=== PATIENT | male | born 1960 | race Caucasian/White ===

== ENCOUNTER 2019-10-14 14:01 | Inpatient (IN) | payer OTHER ==
[2019-10-14 17:04] VITALS: BMI 33.3
--- NOTE | 2019-10-14 17:48 | HP ---
CIWA Score Nausea/Vomitin Muscle Tremors: 2 Anxiety: 3 Agitation: 2 Paroxysmal Sweats: 3 Orientation: 0-Oriented Tacttile Disturbances: 0-None Auditory Disturbances: 0-None Visual Disturbances: 0-None Headache: 0-None Present CIWA-Ar Total Score: 12 - Admission Criteria OASAS Guidelines: Admission for Medically Managed Detox: Requires at least one of the followin. CIWA greater than 12 2. Seizures within the past 24 hours 3. Delirium tremens within the past 24 hours 4. Hallucinations within the past 24 hours 5. Acute intervention needed for co occurring medical disorder 6. Acute intervention needed for co occurring psychiatric disorder 7. Severe withdrawal that cannot be handled at a lower level of care (continued vomiting, continued diarrhea, abnormal vital signs) requiring intravenous medication and/or fluids 8. Admitting History and Physical - Admission Chief Complaint: "I'm here for alcohol detox". History of Present Illness: A 59year old male with history of HTN, DM, dylipidemia, and alcohol use disorder who presents here today requesting for alcohol detox. Pt states he was at [facility] inpatient detox from 10/08/19 to 10/11/19 and relapsed immediately after he was discharged. Pt states his last sobriety was 2years ago for 15months but relapsed. Denies any SI/HI/depression at the moment. History Source: Patient Limitations to Obtaining History: No Limitations - Past Medical History Cardiovascular: Yes: HTN, Hyperlipdemia Psych: Yes: Addictions Endocrine: Yes: Diabetes Mellitus - Smoking History Smoking history: Former smoker Have you smoked in the past 12 months: No - Alcohol/Substance Use Hx Alcohol Use: Yes - Social History Usual Living Arrangement: Yes: Alone History of Recent Travel: No Admission [facility] Allergies/Adverse Reactions: Allergies Allergy/AdvReac Type Severity Reaction Status Date / Time MARYSOL Inhibitors Allergy Mild Cough Verified 10/14/19 16:52 Exam Limitations: No Limitations - Ebola screening Have you traveled outside of the country in the last 21 days: No Have you had contact with anyone from an Ebola affected area: No Have you been sick,other than usual withdrawal symptoms: No Do you have a fever: No - Review of Systems Constitutional: Chills, Night Sweats EENT: reports: No Symptoms Reported Respiratory: reports: No Symptoms reported Cardiac: reports: No Symptoms Reported GI: reports: Nausea, Poor Appetite, Abdominal cramping : reports: No Symptoms Reported Musculoskeletal: reports: No Symptoms Reported Integumentary: reports: Sweating Neuro: reports: Headache, Tremors Endocrine: reports: No Symptoms Reported Hematology: reports: No Symptoms Reported Psychiatric: reports: Mood/Affect Appropiate, Anxious Other Systems: Reviewed and Negative Patient History - Patient Medical History Hx Asthma: No Hx Chronic Obstructive Pulmonary Disease (COPD): No Hx Cancer: No Hx Cardiac Disorders: No Hx Hypertension: Yes (allergy to MARYSOL inhibitors, not on medication now) Hx Hypercholesterolemia: Yes HX Cerebrovascular Accident: No Hx Seizures: Yes (DRUG RELATED SEIZURE MARCH 2018) Hx Diabetes: Yes (on meds) Hx Gastrointestinal Disorders: No Hx Liver Disease: No Hx Genitourinary Disorders: No Hx Sexually Transmitted Disorders: No Hx Renal Disease (ESRD): No Hx Thyroid Disease: No Hx Human Immunodeficiency Virus (HIV): No Hx Hepatitis C: No Hx Depression: No Hx Suicide Attempt: No Hx Bipolar Disorder: No Hx Schizophrenia: No - Patient Surgical History Past Surgical History: No Hx Neurologic Surgery: No Hx Cataract Extraction: No Hx Cardiac Surgery: No Hx Lung Surgery: No Hx Breast Surgery: No Hx Breast Biopsy: No Hx Abdominal Surgery: No Hx Appendectomy: No Hx Cholecystectomy: No Hx Genitourinary Surgery: No Hx Section: No Hx Orthopedic Surgery: No Anesthesia Reaction: No - PPD History Date: 05/04/18 - Smoking Cessation Smoking history: Former smoker Have you smoked in the past 12 months: No Hx Chewing Tobacco Use: No Initiated information on smoking cessation: No - Substance & Tx. History Hx Alcohol Use: Yes Hx Substance Use Treatment: Yes (couple detox admissions, AA group.) - Substances abused Alcohol Substance route: Oral Frequency: Daily Amount used: 8 beers Age of first use: 19 Date of last use: 10/14/19 Admission Physical Exam BHS - Vital Signs Vital Signs: Vital Signs - 24 hr 10/14/19 16:51 Temperature 97.8 F Pulse Rate 79 Respiratory 16 Rate Blood Pressure 125/75 - Physical General Appearance: Yes: No Apparent Distress, Tremorous, Irritable, Sweating, Anxious HEENTM: Yes: EOMI, Hearing grossly Normal, Normocephalic, ROB Respiratory: Yes: Chest Non-Tender, Lungs Clear, Normal Breath Sounds, No Respiratory Distress Neck: Yes: No masses,lesions,Nodules Breast: Yes: Within Normal Limits Cardiology: Yes: Regular Rhythm, Regular Rate, S1, S2 Abdominal: Yes: Normal Bowel Sounds, Non Tender, Soft Genitourinary: Yes: Within Normal Limits Back: Yes: Normal Inspection Musculoskeletal: Yes: full range of Motion, Gait Steady Extremities: Yes: Normal Capillary Refill, Normal Range of Motion, Non-Tender, Tremors Neurological: Yes: Alert, Motor Strength 5/5, Normal Mood/Affect, Normal Response Integumentary: Yes: Dry, Warm Lymphatic: Yes: Within Normal Limits - Diagnostic (1) DM type 2 (diabetes mellitus, type 2) Current Visit: Yes Status: Chronic (2) Alcohol dependence with uncomplicated withdrawal Current Visit: No Status: Acute (3) HLD (hyperlipidemia) Current Visit: No Status: Chronic Qualifiers: Hyperlipidemia type: unspecified Qualified Code(s): E78.5 - Hyperlipidemia , unspecified (4) HTN (hypertension) Current Visit: No Status: Chronic Qualifiers: Hypertension type: essential hypertension Qualified Code(s): I10 - Essential (primary) hypertension Cleared for Admission [facility] - Detox or Rehab [facility] Level of Care: Medically Managed Detox Regimen/Protocol: Librium Claeared for Rehab Admission: No Breathalyzer - Breathalyzer Breathalyzer: 0.078 Urine Drug Screen - Test Device Lot number: [id number] Expiration date: 08/09/21 - Control Is test valid?: Yes - Results Drug screen NEGATIVE: Yes Inpatient Rehab Admission - Rehab Decision to Admit Inpatient rehab admission?: No
[2019-10-14] MEDS ORDERED: MELATONIN 5 MG TABLETS PO PRN (17:56)
[2019-10-14] MEDS ORDERED: ONDANSETRON *ODT* 4 MG TABLET SL PRN (17:56)
[2019-10-14] MEDS ORDERED: BISMUTH SUBSALICYLATE 524 MG/30 ML UD PO PRN (17:56)
[2019-10-14] MEDS ORDERED: MAGNESIUM CITRATE 300 ML BOTTLE PO PRN (17:56)
[2019-10-14] MEDS ORDERED: hydrOXYzine PAMOATE 25 MG CAPSULE (FP) PO PRN (17:56)
[2019-10-14] MEDS ORDERED: MAG HYDROX/AL HYDROX/SIMETH 30 ML UNIT-DOSE CUP PO PRN (17:56)
[2019-10-14] MEDS ORDERED: IBUPROFEN 400 MG TABLET (FP) PO PRN (17:56)
[2019-10-14] MEDS ORDERED: METHOCARBAMOL 500 MG TABLET PO PRN (17:56)
[2019-10-14] MEDS ORDERED: MAGNESIUM HYDROX 2400MG/30ML ORAL SUSPENSION 30 ML CUP PO PRN (17:56)
[2019-10-14] MEDS ORDERED: MENTHOL/PHENOL 1 EACH UD MM PRN (17:56)
[2019-10-14] MEDS ORDERED: ACETAMINOPHEN 325 MG TABLET (FP) PO PRN ×2 (17:56)
[2019-10-14] MEDS ORDERED: LORazepam 1 MG TABLET PO PRN (18:00)
[2019-10-14] MEDS ORDERED: LORazepam 1 MG TABLET PO ONE (19:00)
[2019-10-14] MEDS ORDERED: PATIENT'S OWN MEDICATION (NON-FORMULARY) (Sitagliptin Phos/Metformin Hcl [Janumet 50-1,000 PO SCH (22:00)
[2019-10-14] MEDS: THIAMINE HCL 100 MG TABLET (FP) PO SCH (22:21)
[2019-10-14] MEDS: LORazepam 2 MG TABLET PO SCH (22:23)
[2019-10-14] MEDS: ATORVASTATIN CA 20 MG TABLET (FP) PO SCH (22:24)
[2019-10-15] MEDS: LORazepam 2 MG TABLET PO SCH (06:14)
[2019-10-15] MEDS: metFORMIN HCL 500 MG TABLET (FP) PO SCH ×2 (06:14→16:54)
[2019-10-15] MEDS: sitaGLIPtin PHOSPHATE 50 MG TABLET PO SCH ×2 (06:15→16:55)
[2019-10-15] MEDS: INSULIN SLIDING SCALE (NOVOLOG) 1 VIAL SQ SCH ×2 (06:15→16:40)
[2019-10-15 10:11] LABS: HEMATOCRIT 42.5 % (35.4-49); HEMOGLOBIN 14.3 GM/dL (11.7-16.9); MCH 28.3 pg (25.7-33.7); MCHC 33.6 g/dl (32.0-35.9); MEAN CELL VOLUME 84.2 fl (80-96); MEAN PLT VOLUME 9.1 fl (7.5-11.1); PLATELET COUNT 170 K/MM3 (134-434); RBC 5.05 M/mm3 (4.00-5.60); RDW 14.9 % (11.9-15.9); WHITE BLOOD COUNT 6.7 K/mm3 (4.0-10.0)
[2019-10-15 10:19] LABS: BILIRUBIN,TOTAL 1.4 mg/dL (0.2-1); BLOOD UREA NITROGEN 10.4 mg/dL (7-18); CALCIUM 9.4 mg/dL (8.5-10.1); CREATININE 1.1 mg/dL (0.55-1.3); POTASSIUM 4.2 mmol/L (3.5-5.1); TOT PROT 7.5 g/dl (6.4-8.2)
--- NOTE | 2019-10-15 12:29 | PN ---
S CIWA - CIWA Score Nausea/Vomitin-No Nausea/No Vomiting Muscle Tremors: 3 Anxiety: 2 Agitation: 3 Paroxysmal Sweats: 3 Orientation: 0-Oriented Tacttile Disturbances: 0-None Auditory Disturbances: 0-None Visual Disturbances: 0-None Headache: 0-None Present CIWA-Ar Total Score: 11 S Progress Note (SOAP) Subjective: sweats shakes restless body aches Objective: 10/15/19 12:28 Vital Signs Temperature 97.7 F 10/15/19 09:59 Pulse Rate 78 10/15/19 09:59 Respiratory Rate 18 10/15/19 09:59 Blood Pressure 147/77 10/15/19 09:59 O2 Sat by Pulse Oximetry (%) Laboratory Tests 10/15/19 10/15/19 10/15/19 05:53 08:30 08:30 WBC 6.7 RBC 5.05 Hgb 14.3 Hct 42.5 MCV 84.2 MCH 28.3 MCHC 33.6 RDW 14.9 Plt Count 170 MPV 9.1 Sodium 141 Potassium 4.2 Chloride 105 Carbon Dioxide 29 Anion Gap 7 L BUN 10.4 Creatinine 1.1 Est GFR (CKD-EPI)AfAm 84.12 Est GFR (CKD-EPI)NonAf 72.58 POC Glucometer 144 Random Glucose 155 H Calcium 9.4 Total Bilirubin 1.4 H AST 25 ALT 36 Alkaline Phosphatase 83 Total Protein 7.5 Albumin 4.0 aaox3 ambulating no acute distress Assessment: 10/15/19 12:28 withdrawals Plan: continue detox increase fluids
[2019-10-15] MEDS: LORazepam 1 MG TABLET PO SCH ×3 (13:37→22:04)
[2019-10-15] MEDS: ASPIRIN 81 MG CHEWABLE TABLETS PO SCH (13:37)
[2019-10-15] MEDS: PRENATAL VITAMINS W/ FOLIC ACID TABLET (FP) PO SCH (13:37)
[2019-10-15] MEDS: ATORVASTATIN CA 20 MG TABLET (FP) PO SCH (22:03)
[2019-10-15] MEDS: THIAMINE HCL 100 MG TABLET (FP) PO SCH (22:04)
[2019-10-16] MEDS ORDERED: LORazepam 1 MG TABLET PO SCH (05:00)
[2019-10-16] MEDS: sitaGLIPtin PHOSPHATE 50 MG TABLET PO SCH ×2 (06:23→18:03)
[2019-10-16] MEDS: metFORMIN HCL 500 MG TABLET (FP) PO SCH ×2 (06:23→18:02)
[2019-10-16] MEDS: INSULIN SLIDING SCALE (NOVOLOG) 1 VIAL SQ SCH ×2 (06:24→18:03)
--- NOTE | 2019-10-16 06:46 | HP ---
CIWA Score Nausea/Vomitin-No Nausea/No Vomiting Muscle Tremors: 3 Anxiety: 2 Agitation: 3 Paroxysmal Sweats: 3 Orientation: 0-Oriented Tacttile Disturbances: 0-None Auditory Disturbances: 0-None Visual Disturbances: 0-None Headache: 0-None Present CIWA-Ar Total Score: 11 - Admission Criteria OASAS Guidelines: Admission for Medically Managed Detox: Requires at least one of the followin. CIWA greater than 12 2. Seizures within the past 24 hours 3. Delirium tremens within the past 24 hours 4. Hallucinations within the past 24 hours 5. Acute intervention needed for co occurring medical disorder 6. Acute intervention needed for co occurring psychiatric disorder 7. Severe withdrawal that cannot be handled at a lower level of care (continued vomiting, continued diarrhea, abnormal vital signs) requiring intravenous medication and/or fluids 8. Admitting History and Physical - Past Medical History Cardiovascular: Yes: HTN, Hyperlipdemia Psych: Yes: Addictions Endocrine: Yes: Diabetes Mellitus - Smoking History Smoking history: Former smoker Have you smoked in the past 12 months: No - Alcohol/Substance Use Hx Alcohol Use: Yes - Social History History of Recent Travel: No Admission [facility] Allergies/Adverse Reactions: Allergies Allergy/AdvReac Type Severity Reaction Status Date / Time MARYSOL Inhibitors Allergy Mild Cough Verified 10/14/19 16:52 - Ebola screening Have you traveled outside of the country in the last 21 days: No Have you had contact with anyone from an Ebola affected area: No Have you been sick,other than usual withdrawal symptoms: No Do you have a fever: No Patient History - Patient Medical History Hx Asthma: No Hx Chronic Obstructive Pulmonary Disease (COPD): No Hx Cancer: No Hx Cardiac Disorders: No Hx Hypertension: Yes (allergy to MARYSOL inhibitors, not on medication now) Hx Hypercholesterolemia: Yes HX Cerebrovascular Accident: No Hx Seizures: Yes (DRUG RELATED SEIZURE MARCH 2018) Hx Diabetes: Yes (on meds) Hx Gastrointestinal Disorders: No Hx Liver Disease: No Hx Genitourinary Disorders: No Hx Sexually Transmitted Disorders: No Hx Renal Disease (ESRD): No Hx Thyroid Disease: No Hx Human Immunodeficiency Virus (HIV): No Hx Hepatitis C: No Hx Depression: No Hx Suicide Attempt: No Hx Bipolar Disorder: No Hx Schizophrenia: No - Patient Surgical History Past Surgical History: No Hx Neurologic Surgery: No Hx Cataract Extraction: No Hx Cardiac Surgery: No Hx Lung Surgery: No Hx Breast Surgery: No Hx Breast Biopsy: No Hx Abdominal Surgery: No Hx Appendectomy: No Hx Cholecystectomy: No Hx Genitourinary Surgery: No Hx Section: No Hx Orthopedic Surgery: No Anesthesia Reaction: No - PPD History Previous Implant?: Yes Documented Results: Negative w/proof Date: 05/04/18 - Smoking Cessation Smoking history: Former smoker Have you smoked in the past 12 months: No Hx Chewing Tobacco Use: No Initiated information on smoking cessation: No - Substances abused Alcohol Substance route: Oral Frequency: Daily Amount used: 8 beers Age of first use: 19 Date of last use: 10/14/19 Admission Physical Exam BHS - Vital Signs Vital Signs: Vital Signs - 24 hr 10/15/19 10/15/19 10/15/19 09:59 14:11 17:49 Temperature 97.7 F 98.2 F 98.1 F Pulse Rate 78 79 71 Respiratory 18 20 19 Rate Blood Pressure 147/77 143/80 148/82 10/15/19 10/16/19 21:32 03:18 Temperature 99.9 F H Pulse Rate 77 Respiratory 19 18 Rate Blood Pressure 148/73 Breathalyzer - Breathalyzer Breathalyzer: 0.078 Urine Drug Screen - Test Device Lot number: [id number] Expiration date: 08/09/21 - Control Is test valid?: Yes - Results Drug screen NEGATIVE: Yes Urine drug screen results: BZO-Benzodiazepines
[2019-10-16] MEDS: LORazepam 0.5 MG TABLET PO SCH ×4 (06:47→22:04)
[2019-10-16] MEDS ORDERED: cloNIDine HCL 0.1 MG TABLET PO ONE (06:47)
[2019-10-16] MEDS: LORazepam 1 MG TABLET PO SCH (07:34)
[2019-10-16] MEDS: ASPIRIN 81 MG CHEWABLE TABLETS PO SCH (10:52)
[2019-10-16] MEDS: PRENATAL VITAMINS W/ FOLIC ACID TABLET (FP) PO SCH (10:53)
--- NOTE | 2019-10-16 12:32 | PN ---
[facility] CIWA - CIWA Score Nausea/Vomitin-No Nausea/No Vomiting (but diarrhea) Muscle Tremors: 3 Anxiety: 4-Mod. Anxious/Guarded Agitation: 3 Paroxysmal Sweats: 1-Minimal Palms Moist Orientation: 0-Oriented Tacttile Disturbances: 0-None Auditory Disturbances: 0-None Visual Disturbances: 0-None Headache: 0-None Present CIWA-Ar Total Score: 11 S Progress Note (SOAP) Subjective: Pt c/o anxiety, difficulty falling asleep, abdominal cramps and diarrhea x 2 last night. Denies n/v. Objective: 10/16/19 12:30 Vital Signs - 24 hr 10/15/19 10/15/19 10/15/19 14:11 17:49 21:32 Temperature 98.2 F 98.1 F 99.9 F H Pulse Rate 79 71 77 Respiratory 20 19 19 Rate Blood Pressure 143/80 148/82 148/73 10/16/19 10/16/19 10/16/19 03:18 07:00 11:25 Temperature 97.9 F 97.7 F Pulse Rate 57 L 60 Respiratory 18 18 18 Rate Blood Pressure 119/77 144/85 Laboratory Tests 10/15/19 10/15/19 10/15/19 05:53 08:30 08:30 WBC 6.7 RBC 5.05 Hgb 14.3 Hct 42.5 MCV 84.2 MCH 28.3 MCHC 33.6 RDW 14.9 Plt Count 170 MPV 9.1 Sodium 141 Potassium 4.2 Chloride 105 Carbon Dioxide 29 Anion Gap 7 L BUN 10.4 Creatinine 1.1 Est GFR (CKD-EPI)AfAm 84.12 Est GFR (CKD-EPI)NonAf 72.58 POC Glucometer 144 Random Glucose 155 H Calcium 9.4 Total Bilirubin 1.4 H AST 25 ALT 36 Alkaline Phosphatase 83 Total Protein 7.5 Albumin 4.0 RPR Titer 10/15/19 10/15/19 10/16/19 08:30 16:36 06:19 WBC RBC Hgb Hct MCV MCH MCHC RDW Plt Count MPV Sodium Potassium Chloride Carbon Dioxide Anion Gap BUN Creatinine Est GFR (CKD-EPI)AfAm Est GFR (CKD-EPI)NonAf POC Glucometer 177 171 Random Glucose Calcium Total Bilirubin AST ALT Alkaline Phosphatase Total Protein Albumin RPR Titer Nonreactive Alert o x 3,denies s/h/i nad oob ambulating with steady gait. Assessment: 10/16/19 12:31 ROGER w/s diarrhea Plan: continue detox Imodium prn Fluids as tolerated.
[2019-10-16] MEDS ORDERED: COLLOIDAL OATMEAL 1 BAR EACH TP PRN (18:23)
[2019-10-16] MEDS ORDERED: HYDROCORTISONE 0.5% TOPICAL OINTMENT TUBE TP PRN (18:25)
[2019-10-16] MEDS ORDERED: HYDROCORTISONE 0.5% TOPICAL CREAM 30 GM TUBE TP PRN (20:12)
[2019-10-16] MEDS: ATORVASTATIN CA 20 MG TABLET (FP) PO SCH (22:04)
[2019-10-16] MEDS: THIAMINE HCL 100 MG TABLET (FP) PO SCH (22:04)
[2019-10-16] MEDS: TOLNAFTATE 1% CREAM 15 GM TUBE TP SCH (22:05)
[2019-10-16] MEDS: MINERAL OIL/PETROLAT/WATER TOPICAL CREAM 113 GM JAR TP SCH (22:05)
[2019-10-17] MEDS ORDERED: LORazepam 0.5 MG TABLET PO PRN
[2019-10-17] MEDS ORDERED: LORazepam 0.5 MG TABLET PO SCH (05:00)
[2019-10-17] MEDS ORDERED: LORazepam 0.5 MG TABLET PO ONE (05:00)
[2019-10-17] MEDS: metFORMIN HCL 500 MG TABLET (FP) PO SCH ×2 (06:22→17:28)
[2019-10-17] MEDS: sitaGLIPtin PHOSPHATE 50 MG TABLET PO SCH ×2 (06:23→17:29)
[2019-10-17] MEDS: INSULIN SLIDING SCALE (NOVOLOG) 1 VIAL SQ SCH ×2 (06:23→17:26)
[2019-10-17] MEDS ORDERED: guaiFENesin 200 MG/10 ML 10 ML UNIT-DOSE CUPS PO PRN (06:32)
[2019-10-17] MEDS: PRENATAL VITAMINS W/ FOLIC ACID TABLET (FP) PO SCH (10:07)
[2019-10-17] MEDS: ASPIRIN 81 MG CHEWABLE TABLETS PO SCH (10:07)
[2019-10-17] MEDS: MINERAL OIL/PETROLAT/WATER TOPICAL CREAM 113 GM JAR TP SCH (10:07)
[2019-10-17] MEDS: TOLNAFTATE 1% CREAM 15 GM TUBE TP SCH (10:07)
--- NOTE | 2019-10-17 12:31 | PN ---
S CIWA - CIWA Score Nausea/Vomitin-No Nausea/No Vomiting Muscle Tremors: 2 Anxiety: 3 Agitation: 2 Paroxysmal Sweats: No Perspiration Orientation: 0-Oriented Tacttile Disturbances: 0-None Auditory Disturbances: 0-None Visual Disturbances: 0-None Headache: 0-None Present CIWA-Ar Total Score: 7 BHS Progress Note (SOAP) Subjective: Patient admitted to detox for alcohol dependence. Completed detox regimen this morning, however he c/o alcohol cravings, shakes, anxiety and irritability. Patient stated "It is superbowl friday and I will definitely drink if I leave today." Objective: 10/17/19 12:31 Laboratory Tests 10/15/19 10/15/19 10/15/19 05:53 08:30 08:30 WBC 6.7 RBC 5.05 Hgb 14.3 Hct 42.5 MCV 84.2 MCH 28.3 MCHC 33.6 RDW 14.9 Plt Count 170 MPV 9.1 Sodium 141 Potassium 4.2 Chloride 105 Carbon Dioxide 29 Anion Gap 7 L BUN 10.4 Creatinine 1.1 Est GFR (CKD-EPI)AfAm 84.12 Est GFR (CKD-EPI)NonAf 72.58 POC Glucometer 144 Random Glucose 155 H Calcium 9.4 Total Bilirubin 1.4 H AST 25 ALT 36 Alkaline Phosphatase 83 Total Protein 7.5 Albumin 4.0 RPR Titer 10/15/19 10/15/19 10/16/19 08:30 16:36 06:19 WBC RBC Hgb Hct MCV MCH MCHC RDW Plt Count MPV Sodium Potassium Chloride Carbon Dioxide Anion Gap BUN Creatinine Est GFR (CKD-EPI)AfAm Est GFR (CKD-EPI)NonAf POC Glucometer 177 171 Random Glucose Calcium Total Bilirubin AST ALT Alkaline Phosphatase Total Protein Albumin RPR Titer Nonreactive 10/16/19 10/17/19 16:28 06:21 WBC RBC Hgb Hct MCV MCH MCHC RDW Plt Count MPV Sodium Potassium Chloride Carbon Dioxide Anion Gap BUN Creatinine Est GFR (CKD-EPI)AfAm Est GFR (CKD-EPI)NonAf POC Glucometer 206 142 Random Glucose Calcium Total Bilirubin AST ALT Alkaline Phosphatase Total Protein Albumin RPR Titer Laboratory Tests 10/15/19 10/15/19 10/15/19 05:53 08:30 08:30 WBC 6.7 RBC 5.05 Hgb 14.3 Hct 42.5 MCV 84.2 MCH 28.3 MCHC 33.6 RDW 14.9 Plt Count 170 MPV 9.1 Sodium 141 Potassium 4.2 Chloride 105 Carbon Dioxide 29 Anion Gap 7 L BUN 10.4 Creatinine 1.1 Est GFR (CKD-EPI)AfAm 84.12 Est GFR (CKD-EPI)NonAf 72.58 POC Glucometer 144 Random Glucose 155 H Calcium 9.4 Total Bilirubin 1.4 H AST 25 ALT 36 Alkaline Phosphatase 83 Total Protein 7.5 Albumin 4.0 RPR Titer 10/15/19 10/15/19 10/16/19 08:30 16:36 06:19 WBC RBC Hgb Hct MCV MCH MCHC RDW Plt Count MPV Sodium Potassium Chloride Carbon Dioxide Anion Gap BUN Creatinine Est GFR (CKD-EPI)AfAm Est GFR (CKD-EPI)NonAf POC Glucometer 177 171 Random Glucose Calcium Total Bilirubin AST ALT Alkaline Phosphatase Total Protein Albumin RPR Titer Nonreactive 10/16/19 10/17/19 16:28 06:21 WBC RBC Hgb Hct MCV MCH MCHC RDW Plt Count MPV Sodium Potassium Chloride Carbon Dioxide Anion Gap BUN Creatinine Est GFR (CKD-EPI)AfAm Est GFR (CKD-EPI)NonAf POC Glucometer 206 142 Random Glucose Calcium Total Bilirubin AST ALT Alkaline Phosphatase Total Protein Albumin RPR Titer Vital Signs (72 hours) 10/14/19 10/14/19 10/14/19 16:51 19:01 22:05 Temperature 97.8 F 98.1 F 97.7 F Pulse Rate 79 74 82 Respiratory 16 20 17 Rate Blood Pressure 125/75 136/86 134/78 10/15/19 10/15/19 10/15/19 00:30 03:49 06:36 Temperature 98.1 F Pulse Rate 63 Respiratory 18 18 18 Rate Blood Pressure 128/72 10/15/19 10/15/19 10/15/19 09:59 14:11 17:49 Temperature 97.7 F 98.2 F 98.1 F Pulse Rate 78 79 71 Respiratory 18 20 19 Rate Blood Pressure 147/77 143/80 148/82 10/15/19 10/16/19 10/16/19 21:32 03:18 07:00 Temperature 99.9 F H 97.9 F Pulse Rate 77 57 L Respiratory 19 18 18 Rate Blood Pressure 148/73 119/77 10/16/19 10/16/19 10/16/19 11:25 14:34 18:08 Temperature 97.7 F 99.1 F 97.9 F Pulse Rate 60 71 65 Respiratory 18 18 18 Rate Blood Pressure 144/85 130/64 128/77 10/16/19 10/17/19 10/17/19 21:38 00:30 03:30 Temperature 97.7 F Pulse Rate 73 Respiratory 17 18 18 Rate Blood Pressure 129/81 10/17/19 10/17/19 07:21 09:39 Temperature 97.7 F 98.1 F Pulse Rate 54 L 63 Respiratory 18 18 Rate Blood Pressure 102/50 L 119/75 PE alert and oriented x 3 skin warm and dry +perrla, eoms intact bl car s1s2 resp cta bl ext mild tremors, full rom anxious, irritable at time Assessment: 10/17/19 12:33 ETOH withdrawal sx DM Plan: due to high risk of reoccurrence with pending superbowl this evening, patient d/ c held until tomorrow morning. continue current diabetic management encouraged oral fluids monitor clinically
[2019-10-17 18:04] VITALS: BP 148/98; PULSE 70; TEMP 97.9
[2019-10-18] MEDS ORDERED: LORazepam 0.5 MG TABLET PO PRN
[2019-10-18] MEDS ORDERED: LORazepam 0.5 MG TABLET PO ONE (05:00)
== END 2019-10-17 17:43 | disposition left against medical advice (07) | DRG 770 ==
LOC: YASAS 14:01 → Y6N 18:27
PROVIDERS: ADMIT Allergy & Immunology; ATTEND Allergy & Immunology
PROC: HZ2ZZZZ Detoxification Services for Substance Abuse Treatment (ICD-10-PCS; principal; 2019-10-14)
DX: F10.230 Alcohol dependence with withdrawal, uncomplicated (principal); I10 Essential (primary) hypertension; E11.9 Type 2 diabetes mellitus without complications; E78.5 Hyperlipidemia, unspecified; R19.7 Diarrhea, unspecified; Z87.891 Personal history of nicotine dependence; Z88.8 Allergy status to other drugs, medicaments and biological substances; Z86.69 Personal history of other diseases of the nervous system and sense organs; Z79.84 Long term (current) use of oral hypoglycemic drugs
CPT/HCPCS: 36415; 80053; 82962; 85027; 86593